=== PATIENT | male | born 1985 | race Caucasian/White ===

== ENCOUNTER 2023-05-18 23:05 | Emergency (ER) | payer OTHER ==
[~2023-05-18] VITALS: Ht 175.3 cm; Wt 81.6 kg
[2023-05-18 23:05] VITALS: TEMP 98.1
[2023-05-19 03:51] VITALS: BP 97/53; O2SAT 96
== END 2023-05-19 07:26 | disposition home or self-care (01) ==
LOC: EDBD → ER 23:07
DX: F10.129 Alcohol abuse with intoxication, unspecified (principal); R41.82 Altered mental status, unspecified; Y90.8 Blood alcohol level of 240 mg/100 ml or more
CPT/HCPCS: 36415; 70450-TC; G0480

== ENCOUNTER 2023-05-19 10:50 | Emergency (ER) | payer OTHER ==
[~2023-05-19] VITALS: Ht 188 cm; Wt 79.4 kg
[2023-05-19 13:50] VITALS: BP 120/74; TEMP 98.1; O2SAT 95
== END 2023-05-19 13:51 | disposition home or self-care (01) ==
LOC: ER 10:55
DX: F10.129 Alcohol abuse with intoxication, unspecified (principal); Y90.9 Presence of alcohol in blood, level not specified
CPT/HCPCS: 82962-TC

== ENCOUNTER 2023-05-20 10:39 | Emergency (ER) | payer OTHER ==
[~2023-05-20] VITALS: Ht 177.8 cm; Wt 77.1 kg
[2023-05-20 18:15] VITALS: BP 122/87; TEMP 98.3; O2SAT 96
== END 2023-05-20 18:52 | disposition home or self-care (01) ==
LOC: ER 18:20
DX: F10.229 Alcohol dependence with intoxication, unspecified (principal); Y90.8 Blood alcohol level of 240 mg/100 ml or more
CPT/HCPCS: 36415; G0480